=== PATIENT | female | born 1990 | race Caucasian/White ===

== ENCOUNTER 2018-04-23 03:46 | Observation (INO) | payer OTHER ==
[2018-04-23] MEDS ORDERED: NS 1,000 ML IV ONE ×3 (03:57→05:56)
--- NOTE | 2018-04-23 03:57 | EDPHY ---
H & P Stated Complaint: Syncope x3, altered, bradycardiac Time Seen by Provider: 04/23/18 03:57 HPI/ROS: HPI CHIEF COMPLAINT: Syncope, head strike HISTORY OF PRESENT ILLNESS: 27-year-old female, presents emergency room by ambulance after she had syncopal episodes at home. The patient is otherwise healthy 27-year-old female works out regularly. She went for run last night after work she ran 4 miles. She reports to me she did not drink much fluid. She states she normally stays on top of her fluids. She woke up approximately an hour ago to get something to drink she rolled out of bed with head strike against a dresser. She got up and still went to the kitchen to get a drink and got lightheaded, had a syncopal episode. Fell the ground. She then got up and had another syncopal episode. EMS was called. She arrives to the emergency room in no acute distress. Her heart rate is in the 50s. Blood pressure 90/50. The patient denies any chest pain. Main complaint is a headache where she struck her head on the right side. Denies recent illness. Does state that she did not drink much fluid while working out nor did she drink much fluid yesterday while at work. Past Medical History: Denies significant medical history Past Surgical History: Denies significant surgical history Social History: He denies drugs alcohol tobacco. Family History: ROS REVIEW OF SYSTEMS: 10 Systems were reviewed and negative with the exception of the elements mentioned in the history of present illness. Exam Constitutional appears well nontoxic triage nursing summary reviewed, vital signs reviewed, awake/alert. Eyes normal conjunctivae and sclera, EOMI, PERRLA. HENT head neck atraumatic on exam, normal inspection, atraumatic, moist mucus membranes, no epistaxis, neck supple/ no meningismus, no raccoon eyes. Respiratory clear to auscultation bilaterally, normal breath sounds, no respiratory distress, no wheezing. Cardiovascular rate normal, regular rhythm, no murmur, no edema, distal pulses normal. Gastrointestinal soft, non-tender, no rebound, no guarding, normal bowel sounds, no distension, no pulsatile mass. Genitourinary no CVA tenderness. Musculoskeletal no midline vertebral tenderness, full range of motion, no calf swelling, no tenderness of extremities, no meningismus, good pulses, neurovascularly intact. Skin pink, warm, & dry, no rash, skin atraumatic. Neurologic awake, alert and oriented x 3, AAOx3, moves all 4 extremities equally, motor intact, sensory intact, CN II-XII intact, normal cerebellar, normal vision, normal speech. Psychiatric normal mood/affect. Heme/Lymph/Immune no lymphadenopathy. Differential Diagnosis: But is not limited to in a particular order dehydration , orthostatic hypertension leading to syncope, vasovagal syncope, orthostatic syncope, cardiac arrhythmia, PE, ACS, closed-head injury, intracranial bleed, rhabdomyolysis, dehydration Medical Decision Making: Plan for this patient IV establishment with IV fluid bolus 2 L normal saline, check orthostatics, basic blood work, electrolytes, CBC , troponin, EKG, chest x-ray, CT scan head without contrast given trauma, fall, head injury. Re-evaluation: . EKG interpretation by me on record in [facility] system. Impression time of EKG 3:53 a.m., sinus rhythm rate of 55, early re-ralf pattern. Otherwise no acute ischemia or signs of cardiac arrhythmia no signs of WPW or Brugada. CT scan head without contrast negative for acute traumatic injury called to me by Dr. Robertson ED x-ray chest one view negative for acute cardiopulmonary disease. Troponin is noted to be negative. D-dimer negative. CBC and chemistry normal. Chest x-ray unremarkable. Orthostatic vital signs reviewed. Patient's current vital signs at this time heart rate 57, blood pressure 88/50, pulse ox 100% on room air. Patient's vital signs reviewed at 6:42 a.m. Patient's heart rate remains in the 50s, blood pressure 90 over 50s. 0643: Patient ambulated around the room and still felt off all very lightheaded. 0653: Plan for this patient to be admitted to the hospital for observation. Plan for dehydration. Admit for further arms and rehydration. The patient did ambulate around the room still felt lightheaded. Heart rate has been in the 50s which is probably normal for her given how active and fit she has. She reports to me her blood pressure usually runs around 110. She has been in the 80 systolic and 90 systolic here. She had very dark concentrated urine on testing. She is getting 3 L fluid. She has not had much urine output in the ER. Patient agrees for admission. Dr. Llanes agrees to admit. Source: Patient, EMS - Personal History LMP (Females 10-55): 1-7 Days Ago - Medical/Surgical History Hx Asthma: No Hx Chronic Respiratory Disease: No Hx Diabetes: No Hx Cardiac Disease: No Hx Renal Disease: No Hx Cirrhosis: No Hx Alcoholism: No Hx HIV/AIDS: No Hx Splenectomy or Spleen Trauma: No Other PMH: Denies - Social History Smoking Status: Never smoked Constitutional: Initial Vital Signs Temperature (C) 36.5 C 04/23/18 03:49 Heart Rate 54 L 04/23/18 03:49 Respiratory Rate 16 04/23/18 03:49 Blood Pressure 94/56 L 04/23/18 03:49 O2 Sat (%) 98 04/23/18 03:49 O2 Delivery Mode Room Air Allergies/Adverse Reactions: Penicillins Allergy (Verified 04/23/18 07:51) Hives Home Medications: Medication Instructions Recorded Ascorbic Acid [Vitamin C 500 mg 500 mg PO DAILY 04/23/18 (*)] Cholecalciferol Vit D3 [Vitamin D3 1,000 units PO DAILY 04/23/18 (*)] Glucosamine Sulfate [Glucosamine 500 mg PO DAILY 04/23/18 Sulfate 500 MG (*)] Magnesium Oxide [Magnesium Oxide 400 mg PO DAILY 04/23/18 400 mg (*)] [place]-3 Fatty Acids [Fish Oil 1000 1,000 mg PO DAILY 04/23/18 mg (*)] Medical Decision Making - Data Points Laboratory Results: Laboratory Results 04/23/18 03:50 04/23/18 03:50 Medications Given: Discontinued Medications Sodium Chloride (Ns) 1,000 mls @ 0 mls/hr IV EDNOW ONE; Wide Open PRN Reason: Protocol Stop: 04/23/18 03:58 Last Admin: 04/23/18 04:01 Dose: 1,000 mls Sodium Chloride (Ns) 1,000 mls @ 0 mls/hr IV ONCE ONE PRN Reason: Wide Open Stop: 04/23/18 03:58 Last Admin: 04/23/18 04:03 Dose: 1,000 mls Sodium Chloride (Ns) 1,000 mls @ 0 mls/hr IV ONCE ONE PRN Reason: Wide Open Stop: 04/23/18 05:57 Last Admin: 04/23/18 06:05 Dose: 1,000 mls Sodium Chloride (Ns) 1,000 mls @ 200 mls/hr IV CONT AISHA Stop: 10/20/18 08:14 Last Admin: 04/24/18 04:38 Dose: 1,000 mls Point of Care Test Results: Chemistry 04/23/18 04:00 POC Troponin I 0.01 ng/mL ng/mL (0.00-0.08) Departure - Departure Disposition: [facility] Inpatient Acute Clinical Impression: Dehydration Syncope Qualifiers: Syncope type: unspecified Qualified Code(s): R55 - Syncope and collapse Condition: Good
[2018-04-23 04:05] LABS: PLATELET COUNT 276 10^3/uL (150-400)
[2018-04-23 04:09] LABS: INR 1.08 (0.83-1.16); PROTIME(PATIENT) 14.2 SEC (12.0-15.0)
[2018-04-23 06:34] LABS: CREATINE KINASE 152 IU/L (0-156)
[2018-04-23] MEDS ORDERED: ACETAMINOPHEN 325 MG TAB PO PRN (08:13)
[2018-04-23] MEDS ORDERED: ONDANSETRON 4 MG/2 ML VIAL IVP PRN (08:13)
--- NOTE | 2018-04-23 08:29 | PDGENHP ---
History and Physical History and Physical: CC: Multiple syncope HISTORY: This patient comes into the ER this morning after having 3 syncopal episodes during the night. She states she awakened during the night felt thirsty, got out of bed and was walking to get a drink of water when she had syncope fallen to the floor. She got back into bed but again felt thirsty so went to get up had another syncope fell and bumped her head on a table. Getting up from the floor after this she again have 3rd syncope. Since then she has continued to feel very lightheaded when she tries to get up at all. There is nothing about the episodes to suggest seizure and her did not notice anything seizure-like. There is no tongue biting or incontinence. Notably the patient does have 1 prior syncope episode 4 years ago. The patient is a runner in ran for 5 miles a day the last couple of days. She runs up to 60 miles per week. She says that yesterday she did not drink water very well. Also notably the patient says that for the 1st time ever last evening she took some CBD oral to try and treat pain of an Achilles tendon injury that she is having difficulty with. She does not use any alcohol does not use any other street drugs does not smoke. She has no recent fevers, nausea or vomiting, did not miss meals. No shortness of breath, chest pain, palpitations, or other cardiac or neurologic or pulmonary symptoms. She takes no medications. She is otherwise healthy without any illnesses in the past. 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 Run 60 miles per week No tobacco or alcohol No street drugs As above used CBD well for the 1st time last night MEDICATIONS: No medications Penicillin allergy PHYSICAL EXAMINATION: Vital Signs: Blood pressures have been in the low 90 systolic over 50s diastolic with normal pulse and respirations, no fever; orthostatic vital signs did not show any orthostatic changes; oxygen saturations have been normal 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: All sinus rhythm Examination: General: alert though looks very sleepy and quite exhausted, oriented, no other distress Skin: warm, dry, good color, no rash HEENT: normal Neck: no mass or jvd Resps: relaxed Lungs: clear breath sounds Heart: regular, no murmur Abdomen: soft, nondistended, nontender, +BS, no mass Upper Extremities: normal Lower Extremities: no edema, warm No Bleeding or bruising Neurologic: Normal mentation, no tremor, normal speech/language, normal settlement processor, no focal weakness IV site: looks normal LABORATORY DATA: CBC shows a elevation of lymphocytes at 4600 otherwise unremarkable Negative tests Normal basic metabolic panel liver panel troponin and lipase Normal D-dimer Urinalysis shows specific gravity 1.024 RADIOLOGY STUDIES: Chest x-rays done in the ER, I reviewed the image which is unremarkable A head CT was done as she did strike her head; I reviewed images and this shows no evidence of cranial or intracranial injury 12 LEAD EKG: Reviewed the 12 lead EKG tracing from the ER and this shows sinus rhythm with no specific abnormalities, tracing is consistent with an athletic heart ASSESSMENT: * 3 episodes of recurrent syncope, suspect vagal * Triggers for this include dehydration as evidenced by history of poor fluid intake & higher specific gravity of urine; use of CBD oil which she has never done before; elevated lymphocyte count could indicate a possible viral infection or other similar illness as well * Achilles tendinitis The patient is still symptomatic lead to orthostatic to send home. At this point I do not see any reason to have her undergo further diagnostic testing, but while she is here it is reasonable to have her on EKG monitoring PLANS: * Observation here on cardiac unit with monitoring * Continue IV hydration * Fall risk precautions * I did discuss with the patient and her the potential for CBD oral to cause vasodilation and increase tendency for syncopal type symptoms and spells * We also reviewed other risk factors including hydration, meals etc * Recommended to the patient that she take a short break from running and use ice massage, Aspercreme and other conservative measures for her Achilles tendon and consider physical therapy if it is not healing I have reviewed the patient's case in detail with Dr. Daniel Esquivel
[2018-04-23] MEDS: NS 1,000 ML IV SCH ×3 (08:56→19:26)
--- NOTE | 2018-04-23 17:06 | ASMTCMCOM ---
CM Note CM Note Notes: Pt is a 27 yo F presents after 3 synocopal events. Pt reports she is very active and runs about 60 miles a week. Pt has no prior admissions. No PT/OT orders at this time. no CM needs identified at this time. Pt likely discharged independent. CM available if needs arise. Plan: Independent. Date Signed: 04/23/2018 05:05 PM Electronically Signed By:DEMIAN Villareal
--- NOTE | 2018-04-23 17:35 | HOSPPROG ---
Hospitalist Progress Note Assessment/Plan: 27 yo female with Syncope #Syncope -Likely Vasovagal but cannot r/o other etiology at this time #Dehydration #Abnormal EKG, concerning for Early Repolarization Syndrome Lateral Leads Plan: feels better with IVF Start Telemetry Repeat Troponin, first one negative Obtain TTE Cards consult in a.m. consider stress testing, treadmill Subjective: no cp or sob. had syncopal episode x 3 early this morning Objective: Vital Signs Temp Pulse Resp BP Pulse Ox 37.0 C 59 L 16 99/54 L 97 04/23/18 15:58 04/23/18 15:58 04/23/18 15:58 04/23/18 15:58 04/23/18 15:58 04/22/18 04/23/18 04/24/18 05:59 05:59 05:59 Intake Total 4451 Output Total 600 Balance 3851 PT 14.2 SEC (12.0-15.0) 04/23/18 03:50 INR 1.08 (0.83-1.16) 04/23/18 03:50 - Physical Exam Constitutional: no apparent distress Eyes: PERRL, EOMI Ears, Nose, Mouth, Throat: moist mucous membranes, hearing normal Cardiovascular: regular rate and rhythym, No edema Respiratory: no respiratory distress, no rales or rhonchi, clear to auscultation Gastrointestinal: normoactive bowel sounds, soft, non-tender abdomen Skin: warm Neurologic: AAOx3 Psychiatric: interacting appropriately, not anxious, not encephalopathic Lymph, Heme, Immunologic: No petechiae ICD10 Worksheet Patient Problems: Problems Problem Status Onset Dehydration Acute Syncope Acute
--- NOTE | 2018-04-23 17:45 | ECHO ---
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 No LV hypertrophy. Normal global systolic LV function. EF is 68 %. No regional wall motion abnormality. Normal diastolic LV function. Mildly dilated right ventricle. Normal RV function. The left atrium is normal in size. The right atrium is mildly dilated. Mild tricuspid regurgitation is present. The pulmonary artery pressure is normal. Right ventricular systolic pressure measures 29mmHg. Normal size aortic root measuring 2.4 cm. Normal size ascending aorta measuring 2.4 cm. The IVC is mildly dilated. No pericardial effusion. Measurements: Chambers Valvular Assessment AV/MV Valvular Assessment TV/PV Normal Normal Normal Name Value Range Name Value Range Name Value Range Ao Jackelyn (2D): 2.4 cm (1.4 cm-2.6 AV Vmax: 1.48 m/s (1 m/s-1.7 TR Vmax: 2.46 mm/s ( - ) cm) m/s) TR PGmax: 24 mmHg ( - ) IVSd (2D): 0.8 cm (0.6 cm-1.1 AV maxP mmHg ( - ) syst. PAP: 29 mmHg ( - ) cm) AV meanP mmHg ( - ) PV Vmax: 0.96 m/s (0.6 m/s-0.9 LVDd (2D): 4.5 cm (3.9 cm-5.3 WALDO (VTI): 2.9 cm ( - ) m/s) cm) MV E Vmax: 0.74 m/s ( - ) PV PGmax: 4 mmHg ( - ) LVDs (2D): 2.9 cm (2.1 cm-4 MV A Vmax: 0.39 m/s ( - ) cm) MV E/A: 1.90 ( - ) Patient: ANTONIO CRUZ Study Date: 04/23/2018 Page 1 of 2 04:24 PM LVPWd (2D): 0.9 cm ( - ) MV PHT: 0.071 s ( - ) LVOTd 2.0 cm 2.0 cm mm MVA (PHT): 3.1 s ( - ) LVEF (BP): 68 % (>=55 %) RVDd(2D): 3.0 cm (1.9 cm-3.8 cmmm) Continued Measurements: Chambers Valvular Assessment AV/MV Valvular Assessment TV/PV Name Value Name Value Name Value LADs: 3.5 cm MV DecTime: 243 m/s CVP (est.): 5 mmHg LADs Lon.0 cm MV E' Septal: 0.11 m/s LA Area: 17.2 cm2 MV E/E' Septal: 6.50 LA Volume: 48 ml MV E/E' Lateral: 4.50 LA Volume Index: 28.7 ml/m2 RA Area: 20.2 cm2 Additional Vessels Name Value Ao Ascendin.4 cm Inferior Vena Cava: 2.7 cm Findings: Left Ventricle: Normal size left ventricle. No LV hypertrophy. Normal global systolic LV function. EF is 68 %. No regional wall motion abnormality. Normal diastolic LV function. Right Ventricle: Mildly dilated right ventricle. Normal RV function. Left Atrium: The left atrium is normal in size. Right Atrium: The right atrium is mildly dilated. Mitral Valve: The mitral valve is normal in appearance and function. Trivial mitral valve regurgitation. No mitral stenosis is present. Aortic Valve: The aortic valve is tri-leaflet. There is no significant aortic valve regurgitation. No aortic valve stenosis is present. Tricuspid Valve: The tricuspid valve is normal in appearance and function. Mild tricuspid regurgitation is present. The pulmonary artery pressure is normal. Right ventricular systolic pressure measures 29mmHg. Pulmonic Valve: The pulmonic valve is normal in appearance and function. Trivial pulmonic valve regurgitation. Aorta: The aorta is normal. Normal size aortic root measuring 2.4 cm. Normal size ascending aorta measuring 2.4 cm. IVC: The IVC is mildly dilated. Pericardium: No pericardial effusion. No pleural effusion. (No Signature Object) Patient: ANTONIO CRUZ Study Date: 04/23/2018 Page 2 of 2 04:24 PM [id number]
[2018-04-24] MEDS: NS 1,000 ML IV SCH (04:38)
[2018-04-24 08:20] VITALS: BP 105/76
--- NOTE | 2018-04-24 08:56 | CPEKG ---
Test Reason : OPEN Blood Pressure : / mmHG Vent. Rate : 055 BPM Atrial Rate : 055 BPM P-R Int : 125 ms QRS Dur : 087 ms QT Int : 461 ms P-R-T Axes : 032 068 029 degrees QTc Int : 441 ms Sinus rhythm Probable left atrial enlargement ST elev, probable normal early repol pattern Confirmed by Daniel Esquivel ([id number]) on 04/24/2018 8:55:57 AM Referred By: Confirmed By:Daniel Esquivel
--- NOTE | 2018-04-24 09:46 | GCON ---
CARDIOLOGY CONSULT DATE OF CONSULTATION: 04/24/2018 CHIEF COMPLAINT: Syncope. HISTORY OF PRESENT ILLNESS: We were asked by Dr. Nunez to visit with Andree. 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 She has no known cardiovascul ar disease. She does have a past history of anorexia and bulimia. She was admitted through the ER early on April 23 after 3 syncopal episodes at home. She had gone for about a 5-mile run the evening before and admits that she was probably somewhat dehydrated. She does report normal food intake that day. For the first time, she used some CBD oil, as well as some powder that she was told contained CBD. She had never used this product before. At approximately 2 in the morning, she woke up and felt very thirsty. She got out of bed and struck her head on a dres ser. She then got up again to go to the kitchen and had 2 more episodes of falling. She only rememb ers feeling very thirsty, but does not remember a prodrome of lightheadedness or palpitations. Her h usband came out to get her when he heard her fall, and he reports that there was no incontinence or s eizure activity, but she seemed slightly disoriented, very weak. He tried to help her get up, but th en he had to put her down again because she was limp. Again, no complaints of chest pain, shortness of breath or palpitations. 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 She has ne sy had syncope with exercise. She has no cardiovascular symptoms with exercise. Despite her histor y of eating disorder, she reports that she now eats normally and has been eating normally. Thus far, her troponins have been negative. She has had normal EKGs and normal echocardiogram, which I personally reviewed. She has had no events on telemetry, other than sinus bradycardia, which is e xpected for her level of fitness. REVIEW OF SYSTEMS: A full 10-point review of systems is performed and is negative, except that which is outlined in the History of Present Illness. ALLERGIES: Penicillin. PAST MEDICAL HISTORY: Past history of anorexia and bulimia. OUTPATIENT MEDICATIONS: Vitamin C, vitamin D3, glucosamine, magnesium, and fish oil. SOCIAL HISTORY: The patient does not smoke cigarettes. She rarely drinks alcohol and did not have a lcohol the evening before her admission. She does not use illicit drugs, but did use what she was to ld was CBD oil. 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 FAMILY HISTORY: She reports that her father had some episode with his heart at age 36. No clear diamond gnosis. PHYSICAL EXAM: VITAL SIGNS: Initial blood pressure in the ER was 94/56. Has been above 100 for the past 12 hours. Heart rate 40s to 60s. Oxygen saturation 98% on room air. She has been afebrile. GENERAL: Well-appearing young female in no acute distress. HEENT: Sclerae clear. No jaundice. Mu cous membranes are moist. Normocephalic, atraumatic. CARDIOVASCULAR: JVP less than 10. Carotids eq ual and 2+ bilaterally, without bruit. Regular rate and rhythm, without murmur, rub, or gallop. KATLYN GS: Clear to auscultation, without wheezes, rhonchi, or rales. ABDOMEN: Soft, nontender, nondisten ded, without bruits, masses, or hepatosplenomegaly. EXTREMITIES: Warm and well perfused, without cy anosis, clubbing, or edema. NEURO: Alert and oriented x3, without gross focal neurological deficit. Appropriate mood and affect. EKG reviewed by me shows sinus rhythm with early repolarization pattern. Anterior T-wave inversions in lead V1 and V2. No evidence of pre-excitation, long QT or Brugada pattern. Echocardiogram reviewed by me: Normal LV size and systolic function. No regional wall motion abnorm alities. Mild mitral regurgitation. Mild RV dilation with normal RV function that is an expected fi nding in a runner. Mild tricuspid regurgitation, with normal estimated pulmonary pressure. No peric ardial effusion. Chest x-ray reviewed by me is normal. Head CT: No acute abnormality. LABORATORY DATA: CBC is normal, except for a lymphocyte predominance. D-dimer negative. INR normal . Sodium 141, potassium 4.1, chloride 115, bicarb 22, BUN 4, creatinine 0.8. Her BUN was 15 upon ad mission. Glucose 121 upon admission. Troponin has been negative x2. BNP normal. Beta hCG negative . Lipase normal. LFTs normal. 1+ protein in the urine. Urine tox screen is non-negative for THC. ASSESSMENT AND PLAN: A 27-year-old female with 3 episodes of syncope in rapid succession 2 nights ag o. She has had a normal echo, reassuring EKG, negative troponins and negative D-dimer. No events on telemetry. 1. Syncope: This seems to be a combination of dehydration and possibly THC intoxication. I had a l cheri discussion with the patient and her , who was at the bedside, about what may have been in the powder that she took. The patient's was told that the powder contained CBD. I have call ed the lab to understand whether there is cross-reactivity between CBD and THC in our urine tox scree n assay. They are looking into this. I asked the patient to avoid CBD and THC products in the futur e. She now feels back to baseline. She is euvolemic. For completeness, I will have her have an exe rcise stress test today, and then likely she can be discharged after this, barring any significant ab normalities. 2. Athleticism: She does have some Achilles tendinitis. She may need to back off on her training f or a few weeks to let this heal. 3. Past history of anorexia and bulimia: The patient reports that this has resolved, and she eats n ormally. May require ongoing support for this outpatient. Thank you for this consult. Will follow with you. /[id number]
--- NOTE | 2018-04-24 12:23 | CPIP ---
DATE OF PROCEDURE: 04/24/2018 PROCEDURE: Stress test. INDICATIONS: Syncope. COMPLICATIONS: None. DESCRIPTION OF PROCEDURE: Informed consent was obtained. The patient was established to the stress test monitor. She exercised according to standard David protocol. Total exercise time 11 minutes an d 19 seconds for max METS of 11.5. FINDINGS: Resting EKG shows sinus rhythm with small non pathological inferior Q-waves. Stress EKG shows sinus tachycardia with no arrhythmias and no ST changes. HEMODYNAMIC RESPONSE: Resting blood pressure 114/62. Peak blood pressure 142/78. Resting heart rat e 62 beats per minute. Peak heart rate 164 beats per minute, which represents 86% of age predicted m aximum heart rate. SYMPTOMS: None. REASON FOR TERMINATION: Fatigue. CONCLUSIONS: Graded exercise stress test negative for ischemia or arrhythmia. Normal hemodynamic re sponse to exercise. Good exercise tolerance.. /[id number]/MODL
--- NOTE | 2018-04-24 15:48 | PDDCSUM ---
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 There is evidence of some dehydration with concentrated urine on urine sample was collected after she received 2 L of normal saline. In addition the patient had used some CBD will that had THC in it and this may have contributed as well. There were no other findings of neurologic or cardiac abnormalities to explain her syncope and this is presumed to be a vagal event. Cardiac monitoring done here showed all sinus rhythm The patient had very prolonged orthostatic symptoms and required ongoing IV fluid so was placed in the hospital for that IV fluid therapy. At this point she is eating and drinking well her symptoms have all resolved she is up ambulating without any difficulty. She has done very well on it exercise treadmill stress test. She is felt stable for discharge to home. No further assessment is felt indicated at this time PENDING TEST RESULTS: None MEDICATION CHANGES: None FOLLOW-UP PLAN: With PCP as needed Greater than 35 minutes bedside and care coordination time today
--- NOTE | 2018-04-25 17:18 | CPEKG ---
Test Reason : OPEN Blood Pressure : / mmHG Vent. Rate : 059 BPM Atrial Rate : 058 BPM P-R Int : 128 ms QRS Dur : 077 ms QT Int : 435 ms P-R-T Axes : -16 068 018 degrees QTc Int : 431 ms Sinus rhythm Confirmed by Db Schuler ([id number]) on 04/25/2018 5:17:43 PM Referred By: Confirmed By:Db Schuler
== END 2018-04-24 16:48 | disposition home or self-care (01) ==
LOC: F1N 08:42
PROVIDERS: ADMIT Internal Medicine; ATTEND Internal Medicine
DX: R55 Syncope and collapse (principal); E86.0 Dehydration; R94.31 Abnormal electrocardiogram [ECG] [EKG]; R51 Headache; W19.XXXA Unspecified fall, initial encounter; R53.83 Other fatigue; M76.60 Achilles tendinitis, unspecified leg; Z88.0 Allergy status to penicillin
CPT/HCPCS: 70450; 71045; 93005; 93017; 93306; 96360; 96361; 99285; G0378; 80305; 84484-PO; G0480